=== PATIENT | male | born 1990 | race Caucasian/White ===

== ENCOUNTER 2017-06-27 12:19 | Emergency (ER) | payer OTHER ==
--- NOTE | 2017-06-27 12:28 | EDM.PDOC ---
ED HPI GENERAL MEDICAL PROBLEM - General Chief Complaint: Bite:Animal, Insect Stated Complaint: CAT BITE TO LEFT HAND Time Seen by Provider: 06/27/17 12:20 Source of Information: Reports: Patient History Limitations: Reports: No Limitations - History of Present Illness INITIAL COMMENTS - FREE TEXT/NARRATIVE: HISTORY AND PHYSICAL: History of present illness: Patient is a 26-year-old male who presents to the emergency room with complaints of a cat bite to his left hand. Approximately 3 days ago he was playing with his cat and the cat bit the left thumb and scratched middle proximal digit of the affected hand. Reports that some coworkers were concerned he could develop an infection. Woke up this morning with concerns that there was some redness to the cat bite area and had a brief episode of tingling to the left thumb. Patient denies any drainage from the site. Denies any fever or chills. Reports the cat is up-to-date with its vaccinations. Patient is unsure of his last tetanus, will receive one today. Review of systems: As per history of present illness and below otherwise all systems reviewed and negative. Past medical history: As per history of present illness and as reviewed below otherwise noncontributory. Surgical history: As per history of present illness and as reviewed below otherwise noncontributory. Social history: No reported history of drug or alcohol abuse. Family history: As per history of present illness and as reviewed below otherwise noncontributory. Physical exam: Gen.: Nontoxic appearing 26-year-old male. Alert and oriented. HEENT: Atraumatic, normocephalic, pupils reactive, negative for conjunctival pallor or scleral icterus, mucous membranes moist, throat clear, neck supple, nontender, trachea midline. Lungs: Clear to auscultation, breath sounds equal bilaterally, chest nontender. Heart: S1S2, regular, negative for clicks, rubs, or JVD. Abdomen: Soft, nondistended, nontender. Negative for masses or hepatosplenomegaly. Negative for costovertebral tenderness. Pelvis: Stable nontender. Genitourinary: Deferred. Rectal: Deferred. Skin: Superficial laceration, 3 days old, noted to the left thumb area and left middle finger. Is appear to be healing appropriately. No erythema, warmth, or drainage noted to either laceration Site. Extremities: Full range of motion. Strong and equal grasps to both hands. Full flexion and extension of the involved fingers. Neurovascular unremarkable. Neuro: Awake, alert, oriented. Cranial nerves II through XII unremarkable. Cerebellum unremarkable. Motor and sensory unremarkable throughout. Exam nonfocal. Diagnostics: [] Therapeutics: Tdap Impression: Cat bite Plan: 1. Please keep your skin clean and dry. Wash routinely with soap and water. 2. You received a tetanus booster today 3. Monitor for signs of infection as we discussed. Take your Antibiotic as prescribed. 4. Follow-up with your primary care provider in the next 1-2 days. Return to the ED as needed as discussed Definitive disposition and diagnosis as appropriate pending reevaluation and review of above. Onset Date: 06/24/17 Duration: Day(s): (3) Location: Reports: Upper Extremity, Left - Related Data Allergies Allergy/AdvReac Type Severity Reaction Status Date / Time sulfamethoxazole Allergy Hives Verified 06/27/17 12:36 [From Bactrim] trimethoprim [From Bactrim] Allergy Hives Verified 06/27/17 12:36 Home Meds: Home Meds Multivitamin [Multivitamins] 1 each PO DAILY 06/27/17 [History] Social & Family History - Tobacco Use Smoking Status *Q: Current Every Day Smoker Years of Tobacco use: 3 Used Tobacco, but Quit: No Month Tobacco Last Used: current Second Hand Smoke Exposure: Yes - Alcohol Use Days Per Week of Alcohol Use: 1 Number of Drinks Per Day: 6 Total Drinks Per Week: 6 - Recreational Drug Use Recreational Drug Use: No Drug Use in Last 12 Months: No Recreational Drug Type: Reports: Marijuana/Hashish Recreational Drug Use Frequency: Not Used In Over 1 Year ED ROS GENERAL - Review of Systems Review Of Systems: ROS reveals no pertinent complaints other than HPI. ED EXAM, ANIMAL BITE - Physical Exam Exam: See Below (See dictation) Course - Vital Signs Last Recorded V/S: Last Vital Signs Temp 36.1 C 06/27/17 12:37 Pulse 65 06/27/17 12:37 Resp 18 06/27/17 12:37 BP 134/68 06/27/17 12:37 Pulse Ox 98 06/27/17 12:37 - Orders/Labs/Meds Orders: Active Orders 24 hr Category Date Time Status Vaccines to be Administered [RC] PER UNIT ROUTINE Care 06/27/17 12:39 Ordered Diphth,Pertuss(Rufionll),Tet Vac [Adacel] Med 06/27/17 12:39 Once 0.5 ml IM .ONCE ONE Departure - Departure Time of Disposition: 12:47 Disposition: Home, Self-Care 01 Condition: Good Clinical Impression: Cat bite Qualifiers: Encounter type: initial encounter Qualified Code(s): W55.01XA - Bitten by cat, initial encounter - Discharge Information Instructions: Animal Bite, [id number] Referrals: PCP,None [Primary Care Provider] - Forms: ED Department Discharge Additional Instructions: My general discharge The following information is given to patients seen in the emergency department who are being discharged to home. This information is to outline your options for follow-up care. We provide all patients seen in our emergency department with a follow-up referral. The need for follow-up, as well as the timing and circumstances, are variable depending upon the specifics of your emergency department visit. If you don't have a primary care physician on staff, we will provide you with a referral. We always advise you to contact your personal physician following an emergency department visit to inform them of the circumstance of the visit and for follow-up with them and/or the need for any referrals to a consulting specialist. The emergency department will also refer you to a specialist when appropriate. This referral assures that you have the opportunity for follow-up care with a specialist. All of these measure are taken in an effort to provide you with optimal care, which includes your follow-up. Under all circumstances we always encourage you to contact your private physician who remains a resource for coordinating your care. When calling for follow-up care, please make the office aware that this follow-up is from your recent emergency room visit. If for any reason you are refused follow-up, please contact the [facility] Emergency Department at and asked to speak to the emergency department charge nurse. [facility] [address] [place] [id number] 1. Please keep your skin clean and dry. Wash routinely with soap and water. 2. You received a tetanus booster today 3. Monitor for signs of infection as we discussed. Take your Antibiotic as prescribed. 4. Follow-up with your primary care provider in the next 1-2 days. Return to the ED as needed as discussed - My Orders Last 24 Hours: My Active Orders 06/27/17 12:39 Vaccines to be Administered [RC] PER UNIT ROUTINE Diphth,Pertuss(Acell),Tet Vac [Adacel] 0.5 ml IM .ONCE ONE - Assessment/Plan Last 24 Hours: My Active Orders 06/27/17 12:39 Vaccines to be Administered [RC] PER UNIT ROUTINE Diphth,Pertuss(Acell),Tet Vac [Adacel] 0.5 ml IM .ONCE ONE
[2017-06-27 12:39] VITALS: BP 134/68
[2017-06-27] MEDS ORDERED: Diphtheria,Pertussis(Acell),Tetanus Vaccine 0.5 ML Syringe IM ONE (12:39)
== END 2017-06-27 12:53 | disposition home or self-care (01) ==
LOC: MW.ED 12:19
DX: S61.052A Open bite of left thumb without damage to nail, initial encounter (principal); S61.253A Open bite of left middle finger without damage to nail, initial encounter; F17.210 Nicotine dependence, cigarettes, uncomplicated; Z88.2 Allergy status to sulfonamides; Z88.1 Allergy status to other antibiotic agents; W55.01XA Bitten by cat, initial encounter
CPT/HCPCS: 90471; 90715; 99282; 99283-25

== ENCOUNTER 2017-12-14 23:11 | Emergency (ER) | payer OTHER ==
[2017-12-14] MEDS ORDERED: Ondansetron 4 MG/2 ML SDV IVPUSH ONE (23:33)
[2017-12-14] MEDS ORDERED: Ketorolac 30 MG/ML SDV IVPUSH ONE (23:33)
[2017-12-14] MEDS ORDERED: Sodium Chloride 0.9% 2.5 ML Syringe FLUSH PRN (23:33)
[2017-12-14] MEDS ORDERED: Sodium Chloride 0.9% 10 ML Syringe FLUSH PRN (23:33)
[2017-12-14] MEDS ORDERED: Morphine 2 MG/ML Syringe IVPUSH ONE (23:33)
[2017-12-14] MEDS ORDERED: Sodium Chloride 0.9% 1,000 ML IV ONE (23:33)
--- NOTE | 2017-12-14 23:37 | EDM.PDOC ---
ED HPI GENERAL MEDICAL PROBLEM - General Chief Complaint: Gastrointestinal Problem Stated Complaint: VOMITING, FACE AND HANDS NUMB, DIARRHEA Time Seen by Provider: 12/14/17 23:27 - History of Present Illness INITIAL COMMENTS - FREE TEXT/NARRATIVE: HISTORY AND PHYSICAL: History of present illness: Patient is a 27-year-old male who presents to the ED with a 6 hour history of abdominal cramping and pain vomiting and multiple episodes of loose diarrhea. He has not had a fever or coughing but arrives hyperventilating and also complaining of hand cramping. The patient has a history of hyperventilation here in the past. He does not feel short of breath or have any chest pain. His girlfriend is here in the ED with them, with whom he lives, and she said that last night she had nausea and vomiting but she is better today and taking fluids. They deny that they ate any new foods. Patient is rolling around the bed and is difficult to get a history will not focus on my questioning but he says his abdominal pain is diffuse with the vomiting and diarrhea and all happen simultaneously. He took no meds prior to coming here Review of systems: As per history of present illness and below otherwise all systems reviewed and negative. Past medical history: As per history of present illness and as reviewed below otherwise noncontributory. Surgical history: As per history of present illness and as reviewed below otherwise noncontributory. Social history: No reported history of drug or alcohol abuse. Family history: As per history of present illness and as reviewed below otherwise noncontributory. Physical exam: Gen.: Well-developed well-nourished thin man who is very exaggerated in the room screaming hyperventilating and rolling around the bed. Vital signs are noted by me. HEENT: Atraumatic, normocephalic, pupils reactive, negative for conjunctival pallor or scleral icterus, mucous membranes tacky throat clear, neck supple, nontender, trachea midline. Lungs: Clear to auscultation, breath sounds equal bilaterally, chest nontender. Heart: S1S2, regular rhythm and tachycardic rate of my evaluation but no overt murmurs Abdomen: Soft, nondistended, nontender. On deep palpation of the abdomen distraction there is no tenderness on my exam no rebound no guarding and bowel sounds are slightly hyperactive Negative for masses or hepatosplenomegaly. Pelvis: Stable nontender. Genitourinary: Deferred. Rectal: Deferred. Extremities: Atraumatic, negative for cords or calf pain. Neurovascular unremarkable. There is visible cramping and carpal spasm on the left hand. Neuro: Awake, alert, oriented. Cranial nerves II through XII unremarkable. Cerebellum unremarkable. Motor and sensory unremarkable throughout. Exam nonfocal. Skin: Normal turgor no evidence of diaphoresis or overt rashes Diagnostics: CBC CMP lipase Therapeutics: IV IV fluids Zofran morphine, rebreather mask Patient is currently feeling much improved and has had no nausea no vomiting no abdominal pain no diarrhea. His spasm his hands and tingling of his face is also stopped. We will give him a by mouth challenge and some Zofran and Bentyl for home. Impression: Vomiting/diarrhea , hyperventilation syndrome Definitive disposition and diagnosis as appropriate pending reevaluation and review of above. abdominal Pain Score (Numeric/FACES): 4 - Related Data Allergies Allergy/AdvReac Type Severity Reaction Status Date / Time No Known Allergies Allergy Verified 12/14/17 23:31 Home Meds: Home Meds . [No Known Home Meds] 12/14/17 [History] Past Medical History HEENT History: Reports: None Cardiovascular History: Reports: None Respiratory History: Reports: None Gastrointestinal History: Reports: None Genitourinary History: Reports: None Musculoskeletal History: Reports: None Neurological History: Reports: None Psychiatric History: Reports: None Endocrine/Metabolic History: Reports: None Hematologic History: Reports: None Immunologic History: Reports: None Oncologic (Cancer) History: Reports: None Dermatologic History: Reports: None - Infectious Disease History Infectious Disease History: Reports: None - Past Surgical History GI Surgical History: Reports: Appendectomy Social & Family History - Family History Family Medical History: Noncontributory - Tobacco Use Smoking Status *Q: Current Every Day Smoker Years of Tobacco use: 3 Packs/Tins Daily: 1 Used Tobacco, but Quit: No Month Tobacco Last Used: current Second Hand Smoke Exposure: Yes - Alcohol Use Days Per Week of Alcohol Use: 1 Number of Drinks Per Day: 6 Total Drinks Per Week: 6 - Recreational Drug Use Recreational Drug Use: No Drug Use in Last 12 Months: No Recreational Drug Type: Reports: Marijuana/Hashish Recreational Drug Use Frequency: Not Used In Over 1 Year ED ROS GENERAL - Review of Systems Review Of Systems: ROS reveals no pertinent complaints other than HPI. ED EXAM, GENERAL - Physical Exam Exam: See Below (See dictation) Course - Vital Signs Last Recorded V/S: Last Vital Signs Temp 36.1 C 12/14/17 23:19 Pulse 116 H 12/14/17 23:19 Resp 20 12/14/17 23:19 BP Pulse Ox 97 12/14/17 23:19 - Orders/Labs/Meds Orders: Active Orders 24 hr Category Date Time Status Communication Order [RC] STAT Care 12/14/17 23:33 Active Sodium Chloride 0.9% [Normal Saline] 1,000 ml Med 12/14/17 23:33 Active IV STAT Sodium Chloride 0.9% [Saline Flush] Med 12/14/17 23:33 Active 10 ml FLUSH ASDIRECTED PRN Sodium Chloride 0.9% [Saline Flush] Med 12/14/17 23:33 Active 2.5 ml FLUSH ASDIRECTED PRN Saline Lock Insert [OM.PC] Stat Oth 12/14/17 23:32 Ordered Medication Orders Sodium Chloride (Normal Saline) 1,000 mls @ 999 mls/hr IV STAT ONE Stop: 12/15/17 00:33 Last Admin: 12/14/17 23:51 Dose: 999 mls/hr Sodium Chloride (Saline Flush) 10 ml FLUSH ASDIRECTED PRN PRN Reason: Keep Vein Open Last Admin: 12/14/17 23:52 Dose: 10 ml Sodium Chloride (Saline Flush) 2.5 ml FLUSH ASDIRECTED PRN PRN Reason: Keep Vein Open Last Admin: 12/14/17 23:51 Dose: 2.5 ml Labs: Laboratory Tests 12/14/17 12/14/17 Range/Units 23:20 23:20 WBC 16.16 H (4.0-11.0) K/uL RBC 6.27 H (4.50-5.90) M/uL Hgb 19.7 H (13.0-17.0) g/dL Hct 54.5 H (38.0-50.0) % MCV 86.9 (80.0-98.0) fL MCH 31.4 (27.0-32.0) pg MCHC 36.1 (31.0-37.0) g/dL RDW Std Deviation 39.0 (28.0-62.0) fl RDW Coeff of Leigha 12 (11.0-15.0) % Plt Count 347 (150-400) K/uL MPV 9.60 (7.40-12.00) fL Neut % (Auto) 79.4 (48.0-80.0) % Lymph % (Auto) 6.0 L (16.0-40.0) % [place] % (Auto) 13.9 (0.0-15.0) % Eos % (Auto) 0.6 (0.0-7.0) % Baso % (Auto) 0.1 (0.0-1.5) % Neut # (Auto) 12.8 H (1.4-5.7) K/uL Lymph # (Auto) 1.0 (0.6-2.4) K/uL [place] # (Auto) 2.3 H (0.0-0.8) K/uL Eos # (Auto) 0.1 (0.0-0.7) K/uL Baso # (Auto) 0.0 (0.0-0.1) K/uL Nucleated RBC % 0.0 /100WBC Nucleated RBCs # 0 K/uL Sodium 142 (136-148) mmol/L Potassium 4.8 (3.5-5.1) mmol/L Chloride 102 (98-107) mmol/L Carbon Dioxide 21.9 (21.0-32.0) mmol/L BUN 19 H (7.0-18.0) mg/dL Creatinine 1.8 H (0.8-1.3) mg/dL Est Cr Clr Drug Dosing 60.37 mL/min Estimated GFR (MDRD) 46.2 ml/min Glucose 179 H (74-106) mg/dL Calcium 10.4 H (8.5-10.1) mg/dL Total Bilirubin 2.9 H (0.2-1.0) mg/dL AST 24 (15-37) IU/L ALT 31 (14-63) IU/L Alkaline Phosphatase 103 (46-116) U/L Total Protein 8.9 H (6.4-8.2) g/dL Albumin 5.2 H (3.4-5.0) g/dL Globulin 3.7 H (2.0-3.5) g/dL Albumin/Globulin Ratio 1.4 (1.3-2.8) Lipase 225 (73-393) U/L Meds: Medications Generic Name Dose Route Start Last Admin Trade Name Freq PRN Reason Stop Dose Admin Sodium Chloride 1,000 mls @ 999 mls/hr 12/14/17 23:33 12/14/17 23:51 Normal Saline IV 12/15/17 00:33 999 mls/hr STAT ONE Administration Sodium Chloride 10 ml 12/14/17 23:33 12/14/17 23:52 Saline Flush FLUSH 10 ml ASDIRECTED PRN Administration Keep Vein Open Sodium Chloride 2.5 ml 12/14/17 23:33 12/14/17 23:51 Saline Flush FLUSH 2.5 ml ASDIRECTED PRN Administration Keep Vein Open Discontinued Medications Generic Name Dose Route Start Last Admin Trade Name Freq PRN Reason Stop Dose Admin Ketorolac Tromethamine 30 mg 12/14/17 23:33 Toradol IVPUSH 12/14/17 23:34 ONETIME ONE Morphine Sulfate 4 mg 12/14/17 23:33 Morphine IVPUSH 12/14/17 23:34 ONETIME ONE Ondansetron HCl 4 mg 12/14/17 23:33 12/14/17 23:51 Zofran IVPUSH 12/14/17 23:34 4 mg ONETIME ONE Administration Departure - Departure Time of Disposition: 00:31 Disposition: Home, Self-Care 01 Condition: Good Clinical Impression: Vomiting, Diarrhea, Hyperventilation syndrome - Discharge Information Referrals: PCP,None [Primary Care Provider] - Forms: ED Department Discharge Additional Instructions: The following information is given to patients seen in the emergency department who are being discharged to home. This information is to outline your options for follow-up care. We provide all patients seen in our emergency department with a follow-up referral. The need for follow-up, as well as the timing and circumstances, are variable depending upon the specifics of your emergency department visit. If you don't have a primary care physician on staff, we will provide you with a referral. We always advise you to contact your personal physician following an emergency department visit to inform them of the circumstance of the visit and for follow-up with them and/or the need for any referrals to a consulting specialist. The emergency department will also refer you to a specialist when appropriate. This referral assures that you have the opportunity for followup care with a specialist. All of these measure are taken in an effort to provide you with optimal care, which includes your followup. Under all circumstances we always encourage you to contact your private physician who remains a resource for coordinating your care. When calling for followup care, please make the office aware that this follow-up is from your recent emergency room visit. If for any reason you are refused follow-up, please contact the [facility] emergency department at and ask to speak to the emergency department charge nurse. [facility] Primary care- [place] [address] Please push hydration such as ice water and electrolyte drinks and avoid caffeinated products. Eat small bites of food that are bland over the next 12- 24 hours. Use Zofran as needed for nausea and vomiting and dicyclomine for cramping and diarrhea. You may also use [id number] medications such as Imodium for the diarrhea. Please call and schedule a clinic follow-up appointment using resources given to above. Return to ER as needed and as discussed You have been given Zofran and dicyclomine from [facility] - My Orders Last 24 Hours: My Active Orders 12/14/17 23:32 Saline Lock Insert [OM.PC] Stat 12/14/17 23:33 Communication Order [RC] STAT Sodium Chloride 0.9% [Normal Saline] 1,000 ml IV STAT Sodium Chloride 0.9% [Saline Flush] 10 ml FLUSH ASDIRECTED PRN Sodium Chloride 0.9% [Saline Flush] 2.5 ml FLUSH ASDIRECTED PRN - Assessment/Plan Last 24 Hours: My Active Orders 12/14/17 23:32 Saline Lock Insert [OM.PC] Stat 12/14/17 23:33 Communication Order [RC] STAT Sodium Chloride 0.9% [Normal Saline] 1,000 ml IV STAT Sodium Chloride 0.9% [Saline Flush] 10 ml FLUSH ASDIRECTED PRN Sodium Chloride 0.9% [Saline Flush] 2.5 ml FLUSH ASDIRECTED PRN
[2017-12-15 00:54] VITALS: BP 104/67
== END 2017-12-15 00:55 | disposition home or self-care (01) ==
LOC: MW.ED 23:11
DX: F45.8 Other somatoform disorders (principal); R11.10 Vomiting, unspecified; F17.210 Nicotine dependence, cigarettes, uncomplicated
CPT/HCPCS: 80053; 83690; 85025; 96361; 96374; 99284; J2405; J7040

== ENCOUNTER 2020-02-24 18:16 | Emergency (ER) | payer BC, OTHER ==
--- NOTE | 2020-02-24 18:43 | EDM.PDOC ---
ED HPI GENERAL MEDICAL PROBLEM - General Chief Complaint: Skin Complaint Stated Complaint: BUG BITE ON LT ARM Time Seen by Provider: 02/24/20 18:40 Source of Information: Reports: Patient History Limitations: Reports: No Limitations - History of Present Illness INITIAL COMMENTS - FREE TEXT/NARRATIVE: Patient 29-year-old male no significant past medical history visiting with chief complaint of concerns for insect bite to the left upper extremity. Patient states he thinks he was bitten 2 to 3 days ago. Today, the patient noticed some brownish-blue discoloration to the left upper extremity. Does not have any pain, itching, swelling. The area has not changed in size at all. He is here because his significant other is concerned that this may be a spider bite. Patient does not remember any specific bite or any traumatic injury. Pmhx: None Pshx: None Family Hx: noncontributory Smoking history? no Etoh use? none Drug use? none Review of systems performed otherwise negative as noted per HPI I have reviewed the triage vital signs Const: Well nourished, well developed, appears stated age Eyes: PERRL, no conjunctival injection HENT: NCAT, Neck supple without meningismus MSK: No gross deformities appreciated Skin: Small area of ecchymosis approximately 1 to 2 cm in diameter which is circular in nature. There is no raising of the skin. There is no fluctuation. There is no tenderness. No surrounding erythema. Neuro: Alert, adobe developer II-XII grossly intact. Sensation and motor function of extremities grossly intact. Psych: Appropriate mood and affect Assessment and plan: Patient with abnormal presenting with concerns for insect bite. No evidence of dangerous skin infection, abscess, brown recluse or black spider bite noted. Patient is asymptomatic and will be given reassurance. All questions were addressed and answered. Patient agrees with plan. - Related Data Allergies Allergy/AdvReac Type Severity Reaction Status Date / Time No Known Allergies Allergy Verified 02/24/20 18:29 Home Meds: Home Meds . [No Known Home Meds] 12/14/17 [History] Past Medical History HEENT History: Reports: None Cardiovascular History: Reports: None Respiratory History: Reports: None Gastrointestinal History: Reports: None Genitourinary History: Reports: None Musculoskeletal History: Reports: None Other Musculoskeletal History: collarbone break x3 Neurological History: Reports: None Psychiatric History: Reports: None Endocrine/Metabolic History: Reports: None Hematologic History: Reports: None Immunologic History: Reports: None Oncologic (Cancer) History: Reports: None Dermatologic History: Reports: None - Infectious Disease History Infectious Disease History: Reports: Chicken Pox - Past Surgical History GI Surgical History: Reports: Appendectomy Social & Family History - Family History Family Medical History: Noncontributory - Tobacco Use Smoking Status *Q: Light Tobacco Smoker Years of Tobacco use: 10 Packs/Tins Daily: 0 - Caffeine Use Caffeine Use: Reports: Coffee, Energy Drinks, Soda, Tea - Recreational Drug Use Recreational Drug Use: No ED ROS GENERAL - Review of Systems Review Of Systems: See Below ED EXAM, SKIN/RASH Exam: See Below Course - Vital Signs Last Recorded V/S: Last Vital Signs Temp 36.5 C 02/24/20 18:30 Pulse 83 02/24/20 18:30 Resp 17 02/24/20 18:30 BP 140/75 02/24/20 18:30 Pulse Ox 97 02/24/20 18:30 Departure - Departure Time of Disposition: 18:40 Disposition: Home, Self-Care 01 Clinical Impression: Traumatic ecchymosis of right upper arm - Discharge Information Instructions: Contusion, [id number] Referrals: PCP,None [Primary Care Provider] - Forms: ED Department Discharge Additional Instructions: The following information is given to patients seen in the emergency department who are being discharged to home. This information is to outline your options for follow-up care. We provide all patients seen in our emergency department with a follow-up referral. The need for follow-up, as well as the timing and circumstances, are variable depending upon the specifics of your emergency department visit. If you don't have a primary care physician on staff, we will provide you with a referral. We always advise you to contact your personal physician following an emergency department visit to inform them of the circumstance of the visit and for follow-up with them and/or the need for any referrals to a consulting specialist. The emergency department will also refer you to a specialist when appropriate. This referral assures that you have the opportunity for follow-up care with a specialist. All of these measure are taken in an effort to provide you with optimal care, which includes your follow-up. Under all circumstances we always encourage you to contact your private physician who remains a resource for coordinating your care. When calling for follow-up care, please make the office aware that this follow-up is from your recent emergency room visit. If for any reason you are refused follow-up, please contact the [facility] Emergency Department at and asked to speak to the emergency department charge nurse. Sepsis Event Note - Evaluation Sepsis Screening Result: No Definite Risk - Focused Exam Vital Signs: Vital Signs Temp Pulse Resp BP Pulse Ox 02/24/20 18:30 36.5 C 83 17 140/75 97 Date Exam was Performed: 02/24/20 Time Exam was Performed: 18:40
[2020-02-24 19:09] VITALS: BP 137/69; PULSE 73
== END 2020-02-24 18:59 | disposition home or self-care (01) ==
LOC: MW.ED 18:16
DX: S40.021A Contusion of right upper arm, initial encounter (principal); F17.210 Nicotine dependence, cigarettes, uncomplicated; X58.XXXA Exposure to other specified factors, initial encounter
CPT/HCPCS: 99282